=== PATIENT | male | born 1985 | race African-American/Black ===

== ENCOUNTER 2021-05-25 18:55 | Emergency (ER) | payer BC ==
--- NOTE | 2021-05-25 19:32 | EDM.PDOC ---
ED HPI GENERAL MEDICAL PROBLEM - General Chief Complaint: General Stated Complaint: RIGHT SIDE CRAMPED UP EXTREME PAIN Time Seen by Provider: 05/25/21 19:09 Source of Information: Reports: Patient, RN Notes Reviewed History Limitations: Reports: No Limitations - History of Present Illness INITIAL COMMENTS - FREE TEXT/NARRATIVE: Patient is a 36-year-old male who presents to the ER for the evaluation of his right-sided cramping. Patient was working outside today in the heat, and states he was drinking an appropriate on a water and Gatorade however at around 3 PM when he left the job site he had some intense right-sided cramping. States that his hand curled up in a ball, and it became somewhat hard to breathe when the pain was at its worse. This has gotten better, he is not taking any sort of pain meds for this. He has not had anything like this happen this extreme in the past. Patient denies any other sick-like symptoms, fever/chills, cough/shortness of breath, nausea/vomiting/diarrhea. Right Arm Pain Score (Numeric/FACES): 4 - Related Data Allergies Allergy/AdvReac Type Severity Reaction Status Date / Time No Known Allergies Allergy Verified 05/25/21 19:09 Home Meds: Home Meds . [No Known Home Meds] 05/25/21 [History] Past Medical History - Past Health History Medical/Surgical History: Denies Medical/Surgical History Social & Family History - Tobacco Use Tobacco Use Status *Q: Never Tobacco User Second Hand Smoke Exposure: No - Recreational Drug Use Recreational Drug Use: No ED ROS GENERAL - Review of Systems Review Of Systems: Comprehensive ROS is negative, except as noted in HPI. ED EXAM, GENERAL - Physical Exam Exam: See Below Exam Limited By: No Limitations General Appearance: Alert, WD/WN, No Apparent Distress Respiratory/Chest: No Respiratory Distress, Lungs Clear, Normal Breath Sounds, No Accessory Muscle Use, Chest Non-Tender Cardiovascular: Normal Peripheral Pulses, Regular Rate, Rhythm, No Edema GI/Abdominal: Normal Bowel Sounds, Soft, Non-Tender, No Distention, No Mass Extremities: Normal Inspection, Normal Range of Motion, Normal Capillary Refill Neurological: Alert, Oriented, Normal Cognition, No Motor/Sensory Deficits Psychiatric: Normal Affect, Normal Mood Skin Exam: Warm, Dry, Intact, Normal Color, No Rash Course - Vital Signs Last Recorded V/S: Last Vital Signs Temp 96.5 F L 05/25/21 19:07 Pulse 78 05/25/21 19:07 Resp 18 05/25/21 19:07 BP 119/79 05/25/21 19:07 Pulse Ox 100 05/25/21 19:07 - Orders/Labs/Meds Labs: Laboratory Tests 05/25/21 Range/Units 19:45 Sodium 141 (136-145) mEq/L Potassium 3.1 L (3.5-5.1) mEq/L Chloride 102 (98-107) mEq/L Carbon Dioxide 24 (21-32) mEq/L Anion Gap 18.1 H (5-15) BUN 28 H (7-18) mg/dL Creatinine 2.0 H (0.7-1.3) mg/dL Est Cr Clr Drug Dosing 54.38 mL/min Estimated GFR (MDRD) 46 (>60) mL/min BUN/Creatinine Ratio 14.0 (14-18) Glucose 135 H (70-99) mg/dL Calcium 9.8 (8.5-10.1) mg/dL Magnesium 2.2 (1.8-2.4) mg/dL Total Bilirubin 0.3 (0.2-1.0) mg/dL AST 29 (15-37) U/L ALT 46 (16-63) U/L Alkaline Phosphatase 48 (46-116) U/L Total Protein 8.3 H (6.4-8.2) g/dl Albumin 4.6 (3.4-5.0) g/dl Globulin 3.7 gm/dL Albumin/Globulin Ratio 1.2 (1-2) Meds: Medications Discontinued Medications Generic Name Dose Route Start Last Admin Trade Name Freq PRN Reason Stop Dose Admin Ketorolac Tromethamine 60 mg 05/25/21 19:50 05/25/21 19:58 Ketorolac 60 Mg/2 Ml Sdv IM 05/25/21 19:51 60 mg ONETIME ONE Administration Potassium Chloride 40 meq 05/25/21 20:24 Potassium Chloride 20 Meq Tab.Er PO 05/25/21 20:25 ONETIME ONE - Re-Assessments/Exams Free Text/Narrative Re-Assessment/Exam: 05/25/21 19:31 Patient presents to the ER for his intense right-sided cramping that he had earlier today. This is not apparent at the initial time however we will order a metabolic panel and magnesium level to see if he has any electrolyte imbalances that can be easily replaced. Patient verbalized understanding of this plan. 05/25/21 20:29 Patient's potassium is slightly low at 3.1, he will get 40 mEq oral potassium for this, we will give him some Gatorade to drink, likely discharge him home with conservative recommendations. Departure - Departure Time of Disposition: 20:29 Disposition: Home, Self-Care 01 Condition: Good Clinical Impression: Hypokalemia, Muscle cramps - Discharge Information *PRESCRIPTION DRUG MONITORING PROGRAM REVIEWED*: No *COPY OF PRESCRIPTION DRUG MONITORING REPORT IN PATIENT MELANIE: No Instructions: Muscle Cramps and Spasms, [id number], Hypokalemia Forms: ED Department Discharge Additional Instructions: You were evaluated in the ER today for your muscle cramping. Laboratory evaluation demonstrated that your potassium was mildly low, which can cause some muscle cramping. You were given a one-time oral dose of potassium for supplementation. Recommend that you increase your oral fluid intake to include fluids like Gatorade/Powerade while doing strenuous activity. You will need to drink quite a bit of this in order to replace electrolytes lost through sweating. You may take 600 mg ibuprofen or 500 mg Tylenol every 6 hours as needed for ongoing pain management, do not exceed 3200 mg ibuprofen or 4000 mg Tylenol in a 24-hour time span. Please do not hesitate to return to the ER at any time if your symptoms should change or worsen. Sepsis Event Note (ED) - Evaluation Sepsis Screening Result: No Definite Risk - Focused Exam Vital Signs: Vital Signs Temp Pulse Resp BP Pulse Ox 05/25/21 19:07 96.5 F L 78 18 119/79 100
[2021-05-25] MEDS ORDERED: Ketorolac 60 MG/2 ML SDV IM ONE (19:50)
[2021-05-25] MEDS ORDERED: Potassium Chloride 20 MEQ Tab.ER PO ONE (20:24)
== END 2021-05-25 20:51 | disposition home or self-care (01) ==
LOC: JD.ED 18:55
DX: R25.2 Cramp and spasm (principal); E87.6 Hypokalemia
CPT/HCPCS: 36415; 80053; 83735; 96372; 99284; A9270; J1885; 99283